=== PATIENT | male | born 1970 | race African-American/Black ===

== ENCOUNTER 2018-04-20 01:57 | Emergency (ER) | payer MEDICARE, OTHER ==
[~2018-04-20] VITALS: Ht 182.9 cm; Wt 94.4 kg
[~2018-04-20 01:57] MED LIST: ALBU8.5H8 IH; AMLO10TA2 PO; METO-239 PO
--- NOTE | 2018-04-20 02:06 | ED.ADGEN ---
Past History Past Medical History: Asthma, Hypertension, Other Past Surgical History: Appendectomy, Other Smoking: Non-smoker Alcohol Use: None Drug Use: None Adult General Chief Complaint Chief Complaint ".. I ve been having irregular heart beats the last 5 days.. I thought.. I should get it checked out.. I could not get to sleep thinking about...it..." HPI HPI Patient is a 47 year old male who presents with above hx and complaints of dysrhythmia and irregular heart rates.. Patient has extensive medical history with renal failure due to polycystic kidney disease. Patient has been on dialysis since April of this past year. Patient gets dialysis on Wednesdays and Fridays. Patient normally takes off approximately 2 L at time of dialysis. Has not been in fluid overload since he started receiving dialysis on a regular basis. Denies excessive caffeine use. Patient denies any illicit drugs. Patient has had recent change in blood pressure medications. No recent travel. No history of trauma. No specific history of ill contacts. Patient normally follows with Dr. Hutton. Patient does not recall his dialysis doctor at this time. Patient has had increased snoring at night.and insomnia. Prior sleep study 10 yrs ago. Review of Systems Review of Systems Constitutional: Denies fever or chills [] Eyes: Denies change in visual acuity, redness, or eye pain [] HENT: Denies nasal congestion or sore throat [] Respiratory: Denies cough or shortness of breath [] Cardiovascular: No additional information not addressed in HPI [] GI: Denies abdominal pain, nausea, vomiting, bloody stools or diarrhea [] : Denies dysuria or hematuria [] Musculoskeletal: Denies back pain or joint pain [] Integument: Denies rash or skin lesions [] Neurologic: Denies headache, focal weakness or sensory changes [] Endocrine: Denies polyuria or polydipsia [] All other systems were reviewed and found to be within normal limits, except as documented in this note. Family History Family History Noncontributory Current Medications Current Medications Current Medications Medications (Trade) Dose Ordered Sig/Lisa Start Time Stop Time Status Last Admin Dose Admin Metoprolol Tartrate (Lopressor Vial) 5 mg 1X ONCE 04/20/18 05:00 04/20/18 05:16 DC 04/20/18 05:08 5 MG See nursing for home medications Allergies Allergies Allergies Coded Allergies Type Severity Reaction Last Updated Verified lisinopril Allergy Severe 06/06/15 Yes aspirin Allergy Unknown 06/06/15 No Physical Exam Physical Exam Constitutional: Mild distress, non-toxic appearance. [] HENT: Normocephalic, atraumatic, bilateral external ears normal, oropharynx moist, no oral exudates, nose normal. [] Eyes: PERRLA, EOMI, conjunctiva normal, no discharge. [] Neck: Normal range of motion, no tenderness, supple, no stridor. [] Cardiovascular: Irregular Heart rate and irregular regular rhythm, no murmur [] monitor shows occasional PVCs, PACs, and episodes of 3-2 - second degree atrial heart block Lungs & Thorax: Bilateral breath sounds equal apexes few scattered wheezes and increased crackles in bases on Auscultation [] Abdomen: Bowel sounds normal, soft, no tenderness, renal palpable, no pulsatile masses. [] Old surgery scars. Skin: Warm, dry, no erythema, no rash. [] Back: No tenderness, no CVA tenderness. [] Extremities: No tenderness, no cyanosis, no clubbing, ROM intact, no edema. [] Good thrill at A/V site on left arm Neurologic: Alert and oriented X 3, normal motor function, normal sensory function, no focal deficits noted. [] Psychologic: Affect anxious, judgement normal, mood normal. [] Current Patient Data Vital Signs Vital Signs Date Time Temp Pulse Resp B/P (MAP) Pulse Ox O2 Delivery O2 Flow Rate FiO2 04/20/18 06:04 98.1 89 154/99 (117) 97 Room Air 04/20/18 05:20 20 Lab Results Laboratory Tests Test 04/20/18 03:20 04/20/18 05:27 White Blood Count 6.1 x10^3/uL (4.0-11.0) Red Blood Count 3.77 x10^6/uL (4.30-5.70) L Hemoglobin 10.4 g/dL (13.0-17.5) L Hematocrit 31.8 % (39.0-53.0) L Mean Corpuscular Volume 84 fL (79-100) Mean Corpuscular Hemoglobin 28 pg (25-35) Mean Corpuscular Hemoglobin Concent 33 g/dL (31-37) Red Cell Distribution Width 15.5 % (11.5-14.5) H Platelet Count 212 x10^3/uL (140-400) Neutrophils (%) (Auto) 55 % (31-73) Lymphocytes (%) (Auto) 21 % (24-48) L Monocytes (%) (Auto) 13 % (0-9) H Eosinophils (%) (Auto) 9 % (0-3) H Basophils (%) (Auto) 2 % (0-3) Neutrophils # (Auto) 3.4 x10^3uL (1.8-7.7) Lymphocytes # (Auto) 1.3 x10^3/uL (1.0-4.8) Monocytes # (Auto) 0.8 x10^3/uL (0.0-1.1) Eosinophils # (Auto) 0.6 x10^3/uL (0.0-0.7) Basophils # (Auto) 0.1 x10^3/uL (0.0-0.2) Prothrombin Time 10.6 SEC (9.4-11.4) Prothrombin Time INR 1.0 (0.9-1.1) PTT 25 SEC (23-33) D-Dimer (Katelynn) 0.82 mg/L (0.00-0.50) H Sodium Level 141 mmol/L (136-145) Potassium Level 3.5 mmol/L (3.5-5.1) Chloride Level 103 mmol/L (98-107) Carbon Dioxide Level 34 mmol/L (21-32) H Anion Gap 4 (6-14) L Blood Urea Nitrogen 26 mg/dL (8-26) Creatinine 8.0 mg/dL (0.7-1.3) H Estimated GFR (Cockcroft-Gault) 8.9 Glucose Level 94 mg/dL (70-99) Calcium Level 9.3 mg/dL (8.5-10.1) Magnesium Level 2.0 mg/dL (1.8-2.4) Total Bilirubin 0.5 mg/dL (0.2-1.0) Direct Bilirubin 0.1 mg/dL (0.0-0.2) Aspartate Amino Transferase (AST) 19 U/L (15-37) Alanine Aminotransferase (ALT) 34 U/L (16-63) Alkaline Phosphatase 71 U/L (46-116) Creatine Kinase 161 U/L (39-308) Creatine Kinase MB (Mass) 0.6 ng/mL (0.0-3.6) Creatine Kinase MB Relative Index 0.4 % (0-4) Troponin I Quantitative < 0.017 ng/mL (0-0.055) SX-Rix-Q-Type Natriuretic Peptide 93454 pg/mL (0-124) H Total Protein 7.0 g/dL (6.4-8.2) Albumin 3.1 g/dL (3.4-5.0) L Lipase 139 U/L (73-393) Urine Collection Type Unknown Urine Color Straw Urine Clarity Clear Urine pH 8.5 Urine Specific [place] 1.015 Urine Protein >100 mg/dl (NEG-TRACE) Urine Glucose (UA) 100 mg/dL (NEG) Urine Ketones (Stick) Neg mg/dL (NEG) Urine Blood Mod (NEG) Urine Nitrite Neg (NEG) Urine Bilirubin Neg (NEG) Urine Urobilinogen Dipstick 0.2 mg/dL (0.2 mg/dL) Urine Leukocyte Esterase Neg (NEG) Urine RBC >40 /HPF (0-2) Urine WBC 1-4 /HPF (0-4) Urine Squamous Epithelial Cells Occ /LPF Urine Bacteria Few /HPF (0-FEW) Urine Opiates Screen Neg (NEG) Urine Methadone Screen Neg (NEG) Urine Barbiturates Neg (NEG) Urine Phencyclidine Screen Neg (NEG) Urine Amphetamine/Methamphetamine Neg (NEG) Urine Benzodiazepines Screen Neg (NEG) Urine Cocaine Screen Neg (NEG) Urine Cannabinoids Screen Neg (NEG) Urine Ethyl Alcohol Neg (NEG) EKG EKG My interpretation EKG shows sinus rhythm at 90 bpm. He has a leftward axis. Nonspecific T changes anterior lateral leads. He has prolonged QT interval at 491 ms[] Radiology/Procedures Radiology/Procedures My interpretation of chest x-ray shows some cephalization. Increased cardiac silhouette.[] Comparison to 02/27/15- marked changes Course & Med Decision Making Course & Med Decision Making Pertinent Labs and Imaging studies reviewed. (See chart for details). Discussed options with Pt. He elects to have additional HD today at [facility]. Pt. declines transfer to [facility] or admission. Pt. exhibits [facility] capacity. Seems aware of risks. Pt. insistent on not being transfer. Pt. encouraged to have a repeat sleep study evaluation, because of increase snoring and insomnia complaints. Patient keep follow-up primary care. [] Final Impression Final Impression 1. Dysrhythmia[] 2. Hypertension- 3. End-stage renal disease with hemodialysis on Wednesdays and Fridays 4. Polycystic kidney disease 5. Pulmonary edema 6. Elevated BNP- 56,746 7. Anemia 8. Insomnia 9. Sleep Apnea- Hx Dragon Disclaimer Dragon Disclaimer This electronic medical record was generated, in whole or in part, using a voice recognition dictation system. JOSH FALK MD Apr 20, 2018 02:06
[2018-04-20 03:41] LABS: BASO # 0.1 x10^3/uL (0.0-0.2); BASO % 2 % (0-3); EOS # 0.6 x10^3/uL (0.0-0.7); EOS % 9 % (0-3); HEMATOCRIT 31.8 % (39.0-53.0); HEMOGLOBIN 10.4 g/dL (13.0-17.5); LYMPH # 1.3 x10^3/uL (1.0-4.8); LYMPH % 21 % (24-48); MEAN CORPUSCULAR HEMOGLOBIN 28 pg (25-35); MEAN CORPUSCULAR HGB CONC 33 g/dL (31-37); MEAN CORPUSCULAR VOLUME 84 fL (79-100); MONO # 0.8 x10^3/uL (0.0-1.1); MONO % 13 % (0-9); NEUT # 3.4 x10^3uL (1.8-7.7); NEUT % 55 % (31-73); PLATELET COUNT 212 x10^3/uL (140-400); RED BLOOD COUNT 3.77 x10^6/uL (4.30-5.70); RED CELL DISTRIBUTION WIDTH 15.5 % (11.5-14.5); WHITE BLOOD COUNT 6.1 x10^3/uL (4.0-11.0)
--- NOTE | 2018-04-20 03:51 | RAD ---
PA and lateral chest. HISTORY: Chest pain PA and lateral views were taken of the chest. Lungs are clear. Heart is normal in size without heart failure. There is no effusion. IMPRESSION: 1. No acute chest disease. Electronically signed by: Martin Greene MD (04/20/2018 3:48 AM) [id number]
[2018-04-20 04:05] LABS: ALBUMIN 3.1 g/dL (3.4-5.0); CALCIUM 9.3 mg/dL (8.5-10.1); DIRECT BILIRUBIN 0.1 mg/dL (0.0-0.2); GFR 8.9; POTASSIUM 3.5 mmol/L (3.5-5.1); TOTAL BILIRUBIN 0.5 mg/dL (0.2-1.0)
[2018-04-20] MEDS ORDERED: METOPROLOL TARTRATE 5 MG/5 ML VIAL. IV ONE (05:00)
[2018-04-20 05:52] LABS: BARBITURATES NEG (NEG); BENZODIAZEPINES NEG (NEG); CANNABINOIDS NEG (NEG); COCAINE NEG (NEG); METHADONE NEG (NEG); OPIATES NEG (NEG); PHENCYCLIDINE NEG (NEG)
[2018-04-20 05:53] LABS: BILIRUBIN,URINE NEG (NEG); CLARITY,URINE CLEAR; COLOR,URINE STRAW; GLUCOSE,URINE 100 mg/dL (NEG); NITRITE,URINE NEG (NEG); UROBILINOGEN,URINE 0.2 mg/dL (0.2 mg/dL)
[2018-04-20 05:54] LABS: BACTERIA,URINE FEW /HPF (0-FEW); RBC,URINE >40 /HPF (0-2); SQUAMOUS EPITHELIAL CELL,UR OCC /LPF
[2018-04-20 05:55] LABS: AMPHETAMINE/METHAMPHETAMINE NEG (NEG)
[2018-04-20 06:04] VITALS: BP 154/99
--- NOTE | 2018-04-20 06:36 | EKG ---
[address] [address] Test Date: 2018-04-20 Test Time: 02:40:37 Pat Name: OLIVIA DAVIS Department: Room: Gender: M [employer]: MADDIE : 1970 Requested By: JOSH FALK Order Number: [id number] Reading MD: Measurements Intervals [place] Rate: 90 P: 180 NH: 138 QRS: -44 QRSD: 88 T: 156 QT: 382 QTc: 472 Interpretive Statements SINUS RHYTHM LEFT ATRIAL ABNORMALITY LOW LIMB LEAD VOLTAGE CONSIDER LEFT VENTRICULAR HYPERTROPHY QRS(T) CONTOUR ABNORMALITY CONSIDER ANTEROSEPTAL MYOCARDIAL DAMAGE T ABNORMALITY IN ANTEROLATERAL LEADS ABNORMAL ECG RI6.01 No previous ECG available for comparison
== END 2018-04-20 06:06 | disposition home or self-care (01) ==
LOC: ER 01:57
DX: I49.9 Cardiac arrhythmia, unspecified (principal); I12.0 Hypertensive chronic kidney disease with stage 5 chronic kidney disease or end stage renal disease; N18.6 End stage renal disease; Q61.3 Polycystic kidney, unspecified; J81.1 Chronic pulmonary edema; D64.9 Anemia, unspecified; G47.00 Insomnia, unspecified; G47.30 Sleep apnea, unspecified; R79.89 Other specified abnormal findings of blood chemistry; J45.909 Unspecified asthma, uncomplicated; Z99.2 Dependence on renal dialysis; Z88.8 Allergy status to other drugs, medicaments and biological substances; Z88.6 Allergy status to analgesic agent
CPT/HCPCS: 36415; 71046; 80048; 80076; 80307; 81001; 82553; 83690; 83735; 83880; 84443; 84484; 85025; 85379; 85610; 85730; 93005; 96374; 99285; J3490; G0479

== ENCOUNTER → 2018-04-30 | Outpatient (CLI) | payer MEDICARE, OTHER ==
[2018-04-20 06:04] VITALS: BP 154/99
--- NOTE | 2018-04-30 15:24 | RAD ---
Examination: Ultrasound thyroid HISTORY: History of low TSH COMPARISON: None available FINDINGS: The right lobe of the thyroid gland measures 5.2 x 1.2 x 1.8. The left lobe of the thyroid gland measures 3.9 x 1.6 x 1.5 cm. The isthmus measures 3.5 mm in AP dimension. Diffuse increased blood flow identified in the right and left lobes of thyroid gland. IMPRESSION: Hypervascularity identified in thyroid gland. Correlate for thyroiditis or Graves' disease. Electronically signed by: Tello Gay MD (04/30/2018 3:21 PM) [facility]
== END | disposition home or self-care (01) ==
LOC: US 13:40
PROVIDERS: ATTEND Physician Assistant
DX: R94.6 Abnormal results of thyroid function studies (principal); I12.0 Hypertensive chronic kidney disease with stage 5 chronic kidney disease or end stage renal disease; N18.5 Chronic kidney disease, stage 5; Z86.2 Personal history of diseases of the blood and blood-forming organs and certain disorders involving the immune mechanism
CPT/HCPCS: 76536

== ENCOUNTER 2018-09-18 08:50 | Emergency (ER) | payer MEDICARE, OTHER ==
[~2018-09-18] VITALS: Ht 182.9 cm; Wt 97.1 kg
[~2018-09-18 08:50] MED LIST changes: +ALBU2.5V8 IH; -ALBU8.5H8 IH; -AMLO10TA2 PO; +AMLO10TA6 PO
--- NOTE | 2018-09-18 09:20 | PHYS DOC ---
Past History Past Medical History: Asthma, Hypertension, Renal Failure, Other Past Surgical History: Other (left arm AV fistula) Smoking: Non-smoker Alcohol Use: None Drug Use: None Adult General Chief Complaint Chief Complaint: ABDOMINAL PAIN HPI HPI Patient is a 47-year-old male who presents to the emergency department for evaluation. He states that at about 3, he began experiencing some right mid abdominal pain, he has not had any nausea, vomiting, diarrhea, or constipation. He has not had any fevers or chills. The pain is described as sharp in his right mid abdomen and is nonradiating. He states he has had some gallbladder problems in the past and is supposed to have his gallbladder out in the coming months, but no firm date has been sent. However he states that the pain that he had with his gallbladder in the past was higher than his current pain. There are no alleviating or exacerbating factors to his symptoms. The patient has a history of ESRD, secondary to polycystic kidney disease, his last dialysis was Sunday, his next scheduled dialysis is today at 1:30 PM. Review of Systems Review of Systems Constitutional: Denies fever or chills [] Eyes: Denies change in visual acuity, redness, or eye pain [] HENT: Denies nasal congestion or sore throat [] Respiratory: Denies cough or shortness of breath [] Cardiovascular: The patient denies any shortness of breath, chest pain, palpitations, or orthopnea[] GI: No additional information not addressed in HPI [] : Denies dysuria or hematuria [] Musculoskeletal: Denies back pain or joint pain [] Integument: Denies rash or skin lesions [] Neurologic: Denies headache, focal weakness or sensory changes [] Endocrine: Denies polyuria or polydipsia [] All other systems were reviewed and found to be within normal limits, except as documented in this note. Current Medications Current Medications Current Medications Medications (Trade) Dose Ordered Sig/Lisa Start Time Stop Time Status Last Admin Dose Admin Morphine Sulfate (Morphine 4mg Syringe) 4 mg 1X ONCE 09/18/18 09:15 09/18/18 09:16 DC Allergies Allergies Allergies Coded Allergies Type Severity Reaction Last Updated Verified lisinopril Allergy Severe 06/06/15 Yes aspirin Allergy Unknown 06/06/15 No Physical Exam Physical Exam PHYSICAL EXAM: CONSTITUTIONAL: Well developed, well nourished HEAD: normocephalic, atraumatic EENT: PERRL, EOMI. Conjunctivae normal color, sclerae non-icteric; moist mucous membranes. NECK: Supple, non-tender; no meningismus. LUNGS: Lungs CTA, breathing even and unlabored. Normal air movement. HEART: Regular rate and rhythm, no murmur CHEST: No deformity; non-tender ABDOMEN: The abdomen is soft, there is tenderness to palpation in the right mid abdomen, without rebound or guarding. The right lower quadrant itself is relatively nontender, right upper quadrant is nontender, Cook sign is absent, the left abdomen is generally non-tender, no masses or bruits. Normal bowel sounds are present. EXTREM: Normal ROM; no deformity, no calf tenderness. Normal pulses palpable in all extremities. There is no pedal edema. There is an AV fistula in the left upper arm. SKIN: No rash; no diaphoresis NEURO: Alert; normal speech and cognition; CN's grossly intact; strength grossly intact without focal deficit. BACK: No CVA TTP. Current Patient Data Lab Results Laboratory Tests Test 09/18/18 09:07 09/18/18 12:00 White Blood Count 6.7 x10^3/uL Red Blood Count 4.25 x10^6/uL Hemoglobin 11.1 g/dL Hematocrit 34.2 % Mean Corpuscular Volume 80 fL Mean Corpuscular Hemoglobin 26 pg Mean Corpuscular Hemoglobin Concent 33 g/dL Red Cell Distribution Width 18.0 % Platelet Count 176 x10^3/uL Neutrophils (%) (Auto) 72 % Lymphocytes (%) (Auto) 11 % Monocytes (%) (Auto) 10 % Eosinophils (%) (Auto) 6 % Basophils (%) (Auto) 1 % Neutrophils # (Auto) 4.8 x10^3uL Lymphocytes # (Auto) 0.8 x10^3/uL Monocytes # (Auto) 0.6 x10^3/uL Eosinophils # (Auto) 0.4 x10^3/uL Basophils # (Auto) 0.1 x10^3/uL Sodium Level 141 mmol/L Potassium Level 5.6 mmol/L Chloride Level 105 mmol/L Carbon Dioxide Level 22 mmol/L Anion Gap 14 Blood Urea Nitrogen 91 mg/dL Creatinine 12.7 mg/dL Estimated GFR (Cockcroft-Gault) 5.2 BUN/Creatinine Ratio 7 Glucose Level 145 mg/dL Lactic Acid Level 1.0 mmol/L Calcium Level 9.5 mg/dL Total Bilirubin 0.7 mg/dL Aspartate Amino Transf (AST/SGOT) 19 U/L Alanine Aminotransferase (ALT/SGPT) 36 U/L Alkaline Phosphatase 85 U/L Total Protein 5.6 g/dL Albumin 2.7 g/dL Albumin/Globulin Ratio 0.9 Lipase 134 U/L Urine Collection Type Unknown Urine Color Yellow Urine Clarity Clear Urine pH 8.0 Urine Specific Falk[place] 1.015 Urine Protein 100 mg/dl Urine Glucose (UA) 100 mg/dL Urine Ketones (Stick) Neg mg/dL Urine Blood Trace Urine Nitrite Neg Urine Bilirubin Neg Urine Urobilinogen Dipstick 0.2 mg/dL Urine Leukocyte Esterase Neg Urine RBC Occ /HPF Urine WBC Occ /HPF Urine Squamous Epithelial Cells Few /LPF Urine Bacteria 0 /HPF Current Medications Medications (Trade) Dose Ordered Sig/Lisa Route PRN Reason Start Time Stop Time Status Last Admin Dose Admin Morphine Sulfate (Morphine 4mg Syringe) 4 mg 1X ONCE IV 09/18/18 09:15 09/18/18 09:16 DC 09/18/18 09:21 Sodium Chloride 500 ml @ 0 mls/hr 1X ONCE IV 09/18/18 10:30 09/18/18 10:31 DC 09/18/18 10:54 Ondansetron HCl (Zofran) 4 mg 1X ONCE IV 09/18/18 10:30 09/18/18 10:31 DC 09/18/18 10:53 Iohexol (Omnipaque 240 Mg/ml) 50 ml STK-MED ONCE .ROUTE 09/18/18 10:30 09/18/18 10:32 DC Iohexol (Omnipaque 300 Mg/ml) 75 ml 1X ONCE IV 09/18/18 11:00 09/18/18 11:15 DC 09/18/18 12:00 EKG EKG [Normal sinus rhythm at a rate of 103 beats for minute, normal axis, normal intervals, left ventricular hypertrophy is present. There are no acute ischemic ST/T changes present. Nonspecific changes are present.] Radiology/Procedures Radiology/Procedures PROCEDURE: CT ABDOMEN PELVIS WO CONTRAST Examination: CT of the abdomen pelvis without contrast HISTORY: History of right lower quadrant abdominal pain COMPARISON: None available TECHNIQUE: Axial CT images of the abdomen pelvis were performed without contrast. Coronal and sagittal reformats are performed Exposure: One or more of the following individualized dose reduction techniques were utilized for this examination: 1. Automated exposure control 2. Adjustment of the mA and/or kV according to patient size 3. Use of iterative reconstruction technique FINDINGS: Few prominent densities identified in the bibasilar lungs with the largest measuring 1.3 cm in the right lower lobe of the lung could be pulmonary nodules or metastasis. No evidence of free air identified in the abdomen. The evaluation of the solid organs is limited lack of IV contrast. The evaluation of bowel is limited lack of oral contrast. The visualized noncontrasted liver, demonstrates multiple cystic structures within the largest measuring 1.4 cm probably cyst. Evaluation limited without IV contrast. The visualized spleen, adrenals grossly appears unremarkable. The visualized pancreas grossly appears unremarkable. The stomach is mildly distended. The small bowel is nondilated. The evaluation the appendix is limited on this examination without IV and oral contrast however no significant obvious inflammatory fat stranding identified in the right lower quadrant of the abdomen. Feces and gas noted in the colon. Urinary bladder is mildly distended. Mild thickened appearance of the urinary bladder wall with minimal surrounding fat stranding. Numerous hypodense and hyperdense cystic structures identified in the bilateral kidneys with enlarged appearing kidneys likely polycystic kidney disease. The largest hyperdense cystic structure measuring 2.9 cm identified in the left kidney. The caliber of the aorta grossly appears unremarkable. No evidence of lytic bony destructive lesion. IMPRESSION: 1. No evidence of obvious inflammatory fat stranding identified in the right lower quadrant to suggest appendicitis. 2. Polycystic kidney disease with innumerable hypodense and hyperdense cysts. The largest hyperdense cyst measures 2.9 cm in the left kidney. 3. Small nodules identified in the bibasilar lungs the largest measuring 1.3 cm in the right lower lobe of the lung could be pulmonary nodules or metastasis. 4. Mild thickened appearance of the wall of the urinary bladder with minimal surrounding fat stranding. Correlate for cystitis. [PROCEDURE: CT ABD PELV W/ORAL&IV CONTRAST Examination: CT ABD PELV W/ORAL IV CONTRAST History: RLQ sided abd pain, HX of polycystic kidney desease Comparison/Correlation: None Findings: Axial images of the abdomen and pelvis were obtained following intravenous and oral contrast administration. Minimal right basilar bullous involvement noted. Cardiomegaly is present. Small foci of atelectasis or possibly infiltrate are noted involving the costophrenic angle regions. Numerous hepatic cysts are present and small in size. Largest of hepatic cysts are present. Right hepatic lobe posterior segment cyst measuring up to 1.9 cm diameter is present. Caudate lobe cyst measuring 2.8 cm diameter is present. Subtle, minimal periportal edema is present. Severe bilateral polycystic involvement of the kidneys is noted. Kidneys are enlarged measuring up to 22.5 cm longitudinal on the right and 24.7 cm longitudinal on the left. High density foci bilaterally involving the kidneys probably represent hemorrhagic cysts are noted. No hydronephrosis. No nephrolithiasis. Minimal right infrahepatic ascites is present. No bowel obstruction. No inflammatory change about the cecum. Urinary bladder is mostly decompressed. No enlarged abdominal or pelvic lymph nodes. Mild L5-S1 disc space narrowing is present with vacuum phenomenon. This bulge is noted. Impression: Minimal periportal edema. Minimal ascites. This is of indeterminate significance. Marked polycystic kidney disease. Small foci of posterior basilar atelectasis or possibly infiltrate. Cardiomegaly.] Course & Med Decision Making Course & Med Decision Making Pertinent Labs and Imaging studies reviewed. (See chart for details) [1:05 PM: The patient's condition remained stable. He is feeling significantly better. He still having some right mid and lower abdominal tenderness to palpation. I'm uncertain of the etiology of his symptoms. I'm not highly suspicious that he has appendicitis, given the lack of leukocytosis and a normal CT. I did discuss importance of close follow-up and repeat evaluation in 24 hours if the pain persists. The patient's pain is somewhat superior to the right lower quadrant itself, make me question whether the pain might be related to his massively enlarged kidneys due to polycystic ovary disease. He is to have dialysis this afternoon I encouraged him to attend his dialysis session.] Dragon Disclaimer Dragon Disclaimer This electronic medical record was generated, in whole or in part, using a voice recognition dictation system. Departure Departure: Impression: Primary Impression: Abdominal pain Additional Impressions: Polycystic kidney disease ESRD (end stage renal disease) Disposition: 01 HOME, SELF-CARE Condition: STABLE Referrals: RAGHAVENDRA BARBOZA (PCP) Patient Instructions: Abdominal Pain Scripts Acetaminophen With Codeine (TYLENOL WITH CODEINE #3 TABLET) 1 Each Tablet 1 TAB PO Q6HRS for pain, #10 TAB Prov: KELLIE RIOS MD 09/18/18 Problem Qualifiers KELLIE RIOS MD Sep 18, 2018 09:20
[2018-09-18] MEDS: MORPHINE SULFATE 4 MG/ML DISP.SYRIN. IV ONE (09:21)
[2018-09-18 09:23] LABS: BASO # 0.1 x10^3/uL (0.0-0.2); BASO % 1 % (0-3); EOS # 0.4 x10^3/uL (0.0-0.7); EOS % 6 % (0-3); HEMATOCRIT 34.2 % (39.0-53.0); HEMOGLOBIN 11.1 g/dL (13.0-17.5); LYMPH # 0.8 x10^3/uL (1.0-4.8); LYMPH % 11 % (24-48); MEAN CORPUSCULAR HEMOGLOBIN 26 pg (25-35); MEAN CORPUSCULAR HGB CONC 33 g/dL (31-37); MEAN CORPUSCULAR VOLUME 80 fL (79-100); MONO # 0.6 x10^3/uL (0.0-1.1); MONO % 10 % (0-9); NEUT # 4.8 x10^3uL (1.8-7.7); NEUT % 72 % (31-73); PLATELET COUNT 176 x10^3/uL (140-400); RED BLOOD COUNT 4.25 x10^6/uL (4.30-5.70); WHITE BLOOD COUNT 6.7 x10^3/uL (4.0-11.0)
[2018-09-18 09:37] LABS: ALBUMIN 2.7 g/dL (3.4-5.0); ALBUMIN/GLOBULIN RATIO 0.9 (1.0-1.7); CALCIUM 9.5 mg/dL (8.5-10.1); CREATININE 12.7 mg/dL (0.7-1.3); GFR 5.2; POTASSIUM 5.6 mmol/L (3.5-5.1); TOTAL BILIRUBIN 0.7 mg/dL (0.2-1.0); TOTAL PROTEIN 5.6 g/dL (6.4-8.2)
--- NOTE | 2018-09-18 10:03 | RAD ---
Examination: CT of the abdomen pelvis without contrast HISTORY: History of right lower quadrant abdominal pain COMPARISON: None available TECHNIQUE: Axial CT images of the abdomen pelvis were performed without contrast. Coronal and sagittal reformats are performed Exposure: One or more of the following individualized dose reduction techniques were utilized for this examination: 1. Automated exposure control 2. Adjustment of the mA and/or kV according to patient size 3. Use of iterative reconstruction technique FINDINGS: Few prominent densities identified in the bibasilar lungs with the largest measuring 1.3 cm in the right lower lobe of the lung could be pulmonary nodules or metastasis. No evidence of free air identified in the abdomen. The evaluation of the solid organs is limited lack of IV contrast. The evaluation of bowel is limited lack of oral contrast. The visualized noncontrasted liver, demonstrates multiple cystic structures within the largest measuring 1.4 cm probably cyst. Evaluation limited without IV contrast. The visualized spleen, adrenals grossly appears unremarkable. The visualized pancreas grossly appears unremarkable. The stomach is mildly distended. The small bowel is nondilated. The evaluation the appendix is limited on this examination without IV and oral contrast however no significant obvious inflammatory fat stranding identified in the right lower quadrant of the abdomen. Feces and gas noted in the colon. Urinary bladder is mildly distended. Mild thickened appearance of the urinary bladder wall with minimal surrounding fat stranding. Numerous hypodense and hyperdense cystic structures identified in the bilateral kidneys with enlarged appearing kidneys likely polycystic kidney disease. The largest hyperdense cystic structure measuring 2.9 cm identified in the left kidney. The caliber of the aorta grossly appears unremarkable. No evidence of lytic bony destructive lesion. IMPRESSION: 1. No evidence of obvious inflammatory fat stranding identified in the right lower quadrant to suggest appendicitis. 2. Polycystic kidney disease with innumerable hypodense and hyperdense cysts. The largest hyperdense cyst measures 2.9 cm in the left kidney. 3. Small nodules identified in the bibasilar lungs the largest measuring 1.3 cm in the right lower lobe of the lung could be pulmonary nodules or metastasis. 4. Mild thickened appearance of the wall of the urinary bladder with minimal surrounding fat stranding. Correlate for cystitis. Electronically signed by: Tello Gay MD (09/18/2018 9:59 AM) [place] [id number]
[2018-09-18] MEDS ORDERED: IOHEXOL 240 MG/ML 50ML VIAL. ONE (10:30)
[2018-09-18] MEDS: ONDANSETRON PF 4 MG/2 ML VIAL. IV ONE (10:53)
[2018-09-18] MEDS: IV NORMAL SALINE 500ML 500 ML IV ONE (10:54)
[2018-09-18] MEDS: IOHEXOL 300 MG/ML 75 ML VIAL. IV ONE (12:00)
[2018-09-18 12:24] LABS: BILIRUBIN,URINE NEG (NEG); CLARITY,URINE CLEAR; COLOR,URINE YELLOW; GLUCOSE,URINE 100 mg/dL (NEG); UROBILINOGEN,URINE 0.2 mg/dL (0.2 mg/dL)
[2018-09-18 12:25] LABS: BACTERIA,URINE 0 /HPF (0-FEW); NITRITE,URINE NEG (NEG); RBC,URINE OCC /HPF (0-2); SQUAMOUS EPITHELIAL CELL,UR FEW /LPF; WBC,URINE OCC /HPF (0-4)
--- NOTE | 2018-09-18 12:55 | RAD ---
Examination: CT ABD PELV W/ORAL IV CONTRAST History: RLQ sided abd pain, HX of polycystic kidney desease Comparison/Correlation: None Findings: Axial images of the abdomen and pelvis were obtained following intravenous and oral contrast administration. Minimal right basilar bullous involvement noted. Cardiomegaly is present. Small foci of atelectasis or possibly infiltrate are noted involving the costophrenic angle regions. Numerous hepatic cysts are present and small in size. Largest of hepatic cysts are present. Right hepatic lobe posterior segment cyst measuring up to 1.9 cm diameter is present. Caudate lobe cyst measuring 2.8 cm diameter is present. Subtle, minimal periportal edema is present. Severe bilateral polycystic involvement of the kidneys is noted. Kidneys are enlarged measuring up to 22.5 cm longitudinal on the right and 24.7 cm longitudinal on the left. High density foci bilaterally involving the kidneys probably represent hemorrhagic cysts are noted. No hydronephrosis. No nephrolithiasis. Minimal right infrahepatic ascites is present. No bowel obstruction. No inflammatory change about the cecum. Urinary bladder is mostly decompressed. No enlarged abdominal or pelvic lymph nodes. Mild L5-S1 disc space narrowing is present with vacuum phenomenon. This bulge is noted. Impression: Minimal periportal edema. Minimal ascites. This is of indeterminate significance. Marked polycystic kidney disease. Small foci of posterior basilar atelectasis or possibly infiltrate. Cardiomegaly. Electronically signed by: Mason Penaloza MD (09/18/2018 12:51 PM) [id number]
[2018-09-18 13:00] VITALS: BP 154/100
[2018-09-18] MEDS ORDERED: ACET-704 PO (13:09)
--- NOTE | 2018-09-18 17:40 | EKG ---
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
== END 2018-09-18 13:10 | disposition home or self-care (01) ==
LOC: ER 08:50
DX: Q61.3 Polycystic kidney, unspecified (principal); I12.0 Hypertensive chronic kidney disease with stage 5 chronic kidney disease or end stage renal disease; N18.6 End stage renal disease; J45.909 Unspecified asthma, uncomplicated; R18.8 Other ascites; J98.11 Atelectasis; I51.7 Cardiomegaly; Z88.6 Allergy status to analgesic agent; Z99.2 Dependence on renal dialysis; Z88.8 Allergy status to other drugs, medicaments and biological substances
CPT/HCPCS: 36415; 74176; 74177; 80053; 81001; 83605; 83690; 85025; 93005; 96374; 96375; 99284; J2270; J2405; J7040; Q9967

== ENCOUNTER → 2019-01-22 | Outpatient (CLI) | payer MEDICARE, OTHER ==
[~2019-01-22] MED LIST changes: +ACET-704 PO; -AMLO10TA6 PO; +AMLO10TA8 PO
--- NOTE | 2019-01-22 14:42 | RAD ---
AP view of the abdomen Clinical indications: Evaluation of peritoneal dialysis catheter placement. FINDINGS: Peritoneal dialysis catheter is in place and is seen extending from the right mid abdomen toward the midline extending inferiorly into the midline of the midpelvis. No obstructive bowel pattern is evident. There is moderate fecal retention throughout the colon and rectosigmoid region. The osseous structures are intact. IMPRESSION: Peritoneal dialysis catheter in place. Moderate fecal retention. Electronically signed by: Enrico Boo MD (01/22/2019 2:39 PM) [id number]
== END | disposition home or self-care (01) ==
LOC: RAD 14:15
PROVIDERS: ATTEND Internal Medicine Nephrology
DX: Z49.02 Encounter for fitting and adjustment of peritoneal dialysis catheter (principal); K59.00 Constipation, unspecified
CPT/HCPCS: 74018

== ENCOUNTER 2019-07-26 00:34 | Emergency (ER) | payer OTHER, MEDICAID ==
[~2019-07-26] VITALS: Ht 182.9 cm; Wt 94.6 kg
--- NOTE | 2019-07-26 00:37 | ED.ADGEN ---
Past History Past Medical History: Asthma, Hypertension, Renal Failure, Other Past Surgical History: Other Smoking: Non-smoker Alcohol Use: None Drug Use: None Adult General Chief Complaint Chief Complaint ".. I am .. having... bad.... asthma... I am... too short... of ... breath....." HPI HPI Patient is a 48 year old male who presents with above hx and complaints of severe asthma exacerbation. Pt. reports he has severe exacerbation a pproximately once per year. - Pt. reports he did use his inhaler at home but it did not seem to be working. Patient did go to dialysis today and he took off 2 kg of fluid this is more than his average 1.5 kg. Patient has chronic renal disease and has had episodes of pulmonary edema. Patient gets dialysis on Wednesdays and Fridays. Patient does not know his baseline peak flow. No history of intubations for asthma exacerbations. Patient has had almost yearly asthma exacerbation since age 23. Patient denies any specific ill contacts or recent travel. With Dr. Steen for his renal failure. Follows with [facility] for primary care. Review of Systems Review of Systems Constitutional: Denies fever or chills [] Eyes: Denies change in visual acuity, redness, or eye pain [] HENT: Denies nasal congestion or sore throat [] Respiratory: History of a nonproductive cough and marked wheezing Cardiovascular: No additional information not addressed in HPI [] GI: Denies abdominal pain, nausea, vomiting, bloody stools or diarrhea [] : Denies dysuria or hematuria [] Musculoskeletal: Denies back pain or joint pain [] Integument: Denies rash or skin lesions [] Neurologic: Denies headache, focal weakness or sensory changes [] Endocrine: Denies polyuria or polydipsia [] All other systems were reviewed and found to be within normal limits, except as documented in this note. Family History Family History Noncontributory Current Medications Current Medications Current Medications Medications (Trade) Dose Ordered Sig/Lisa Start Time Stop Time Status Last Admin Dose Admin Albuterol Sulfate (Ventolin Hfa Inhaler) 2 puff 1X ONCE 07/26/19 03:15 07/26/19 04:13 DC 07/26/19 03:51 2 PUFF Albuterol/ Ipratropium (Duoneb) 3 ml 1X ONCE 07/26/19 04:00 07/26/19 04:13 DC 07/26/19 00:50 3 ML Methylprednisolone Sodium Succinate (SOLU-Medrol 125MG VIAL) 125 mg 1X ONCE 07/26/19 01:15 07/26/19 01:16 DC 07/26/19 01:47 125 MG See nursing for home meds Allergies Allergies Allergies Coded Allergies Type Severity Reaction Last Updated Verified lisinopril Allergy Severe 06/06/15 Yes aspirin Allergy Unknown 06/06/15 No Physical Exam Physical Exam Constitutional: Moderately acute distress, non-toxic appearance. [] HENT: Normocephalic, atraumatic, bilateral external ears normal, oropharynx moist, no oral exudates, nose swollen turbinates and clear rhinorrhea. Eyes: PERRLA, EOMI, conjunctiva normal, no discharge. [] Neck: Normal range of motion, no tenderness, supple, no stridor. [] Cardiovascular: Tachycardia Heart rate regular rhythm, no murmur []PMI to the left Lungs & Thorax: Bilateral breath sounds equal apex with wheezing throughout on auscultation [] Abdomen: Bowel sounds normal, soft, no tenderness, no masses, no pulsatile masses. [] Skin: Warm, dry, no erythema, no rash. [] Back: No tenderness, no CVA tenderness. [] Extremities: No tenderness, no cyanosis, no clubbing, ROM intact, no edema. [] Left AV graft has good thrill. No cording in legs. Neurologic: Alert and oriented X 3, normal motor function, normal sensory function, no focal deficits noted. [] Psychologic: Affect anxious,, judgement normal, mood normal. [] Current Patient Data Vital Signs Vital Signs Date Time Temp Pulse Resp B/P (MAP) Pulse Ox O2 Delivery O2 Flow Rate FiO2 07/26/19 04:00 98.3 86 20 127/78 (94) 96 Room Air Lab Results Laboratory Tests Test 07/26/19 01:45 White Blood Count 7.5 x10^3/uL (4.0-11.0) Red Blood Count 4.74 x10^6/uL (4.30-5.70) Hemoglobin 13.9 g/dL (13.0-17.5) Hematocrit 42.0 % (39.0-53.0) Mean Corpuscular Volume 89 fL (79-100) Mean Corpuscular Hemoglobin 29 pg (25-35) Mean Corpuscular Hemoglobin Concent 33 g/dL (31-37) Red Cell Distribution Width 14.7 % (11.5-14.5) H Platelet Count 220 x10^3/uL (140-400) Neutrophils (%) (Auto) 62 % (31-73) Lymphocytes (%) (Auto) 19 % (24-48) L Monocytes (%) (Auto) 12 % (0-9) H Eosinophils (%) (Auto) 6 % (0-3) H Basophils (%) (Auto) 1 % (0-3) Neutrophils # (Auto) 4.7 x10^3uL (1.8-7.7) Lymphocytes # (Auto) 1.5 x10^3/uL (1.0-4.8) Monocytes # (Auto) 0.9 x10^3/uL (0.0-1.1) Eosinophils # (Auto) 0.5 x10^3/uL (0.0-0.7) Basophils # (Auto) 0.1 x10^3/uL (0.0-0.2) Prothrombin Time 10.3 SEC (9.4-11.4) Prothrombin Time INR 1.0 (0.9-1.1) Activated Partial Thromboplast Time 26 SEC (23-33) D-Dimer (Katelynn) 1.12 mg/L (0.00-0.50) H Sodium Level 146 mmol/L (136-145) H Potassium Level 4.6 mmol/L (3.5-5.1) Chloride Level 101 mmol/L (98-107) Carbon Dioxide Level 30 mmol/L (21-32) Anion Gap 15 (6-14) H Blood Urea Nitrogen 39 mg/dL (8-26) H Creatinine 11.6 mg/dL (0.7-1.3) H Estimated GFR (Cockcroft-Gault) 5.8 Glucose Level 124 mg/dL (70-99) H Calcium Level 7.5 mg/dL (8.5-10.1) L Magnesium Level 1.7 mg/dL (1.8-2.4) L Total Bilirubin 0.3 mg/dL (0.2-1.0) Direct Bilirubin 0.1 mg/dL (0.0-0.2) Aspartate Amino Transferase (AST) 6 U/L (15-37) L Alanine Aminotransferase (ALT) 19 U/L (16-63) Alkaline Phosphatase 139 U/L (46-116) H Creatine Kinase 636 U/L (39-308) H Troponin I Quantitative < 0.017 ng/mL (0-0.055) RE-Ihk-T-Type Natriuretic Peptide 1312 pg/mL (0-124) H Total Protein 8.4 g/dL (6.4-8.2) H Albumin 3.3 g/dL (3.4-5.0) L Lipase 158 U/L (73-393) EKG EKG My interpretation EKG shows sinus tachycardia 102 bpm. Does have a right axis deviation. No findings acute STEMI of contralateral changes.[] Radiology/Procedures Radiology/Procedures I interpretation of chest x-ray shows no localized infiltrate or findings of increased cephalization. As compared. 2 prior films on file[][address] [address] IMAGING REPORT Signed PATIENT: OLIVIA DAVIS V ACCOUNT: [id number] : 1970 LOCATION: ER AGE: 48 SEX: M EXAM STATUS: REG ER ORD. PHYSICIAN: JOSH FALK MD REASON: respiratory failure PROCEDURE: PORTABLE CHEST 1V PORTABLE CHEST 1V Clinical History: Respiratory failure Technique: AP view of the chest was obtained at 07/26/2019 12:54 AM. Comparison: April 20, 2018. Findings: The cardiomediastinal silhouette is normal. The pulmonary vasculature is normal. The lungs and pleural margins are clear. Impression: No evidence of an acute cardiopulmonary process. Electronically signed by: Jenelle Carnes III, MD (07/26/2019 5:47 AM) [facility] DICTATED AND SIGNED BY: JENELLE CARNES III, MD DATE: 07/26/19 0547 CC: JOSH FALK MD; RAGHAVENDRA BARBOZA ~ Course & Med Decision Making Course & Med Decision Making Pertinent Labs and Imaging studies reviewed. (See chart for details) Patient received Solu-Medrol 125. DuoNeb treatments. Marked improvement in wheezing. Patient requested discharge home. Reviewed labs x-rays and EKG findings with patient. Patient will follow-up with nephrology in his primary care. Patient may use MDI 2 puffs 4 times a day. Document peak flows. Review this with primary ca re. Patient return if any concerns. Patient will take prednisone 50 mg daily for 5 days. Patient must follow-up primary care. Patient return if elects to be admitted. Patient encouraged to return if any concerns. Patient exhibits UCAR capacity [] Final Impression Final Impression 1. Asthma exacerbation 2. Chronic renal failure and dialysis Sunday[] 3. BNP 1312 4. BUN 39/ Creat 11.6 Dragon Disclaimer Dragon Disclaimer This electronic medical record was generated, in whole or in part, using a voice recognition dictation system. Dragon Disclaimer This chart was dictated in whole or in part using Voice Recognition software in a busy, high-work load, and often noisy Emergency Department environment. It may contain unintended and wholly unrecognized errors or omissions. Dragon Disclaimer This chart was dictated in whole or in part using Voice Recognition software in a busy, high-work load, and often noisy Emergency Department environment. It may contain unintended and wholly unrecognized errors or omissions. JOSH FALK MD Jul 26, 2019 00:37
[2019-07-26] MEDS ORDERED: IPRATRPIUM/ALBUTEROL 0.5/2.5MG 3 ML NEBU. ONE (00:47)
[2019-07-26] MEDS ORDERED: ISOS30TA4 PO (00:50)
[2019-07-26] MEDS ORDERED: HYDR-2867 PO (00:50)
[2019-07-26] MEDS ORDERED: CARV12.5 PO (00:50)
[2019-07-26] MEDS ORDERED: thyroid med (00:51)
[2019-07-26] MEDS ORDERED: methylPREDNISolone SOD SUCC PF 125 MG/2 ML VIAL. IV ONE (01:15)
[2019-07-26 02:34] LABS: BASO # 0.1 x10^3/uL (0.0-0.2); BASO % 1 % (0-3); EOS # 0.5 x10^3/uL (0.0-0.7); EOS % 6 % (0-3); HEMOGLOBIN 13.9 g/dL (13.0-17.5); LYMPH # 1.5 x10^3/uL (1.0-4.8); LYMPH % 19 % (24-48); MEAN CORPUSCULAR HEMOGLOBIN 29 pg (25-35); MEAN CORPUSCULAR HGB CONC 33 g/dL (31-37); MEAN CORPUSCULAR VOLUME 89 fL (79-100); MONO # 0.9 x10^3/uL (0.0-1.1); MONO % 12 % (0-9); NEUT # 4.7 x10^3uL (1.8-7.7); NEUT % 62 % (31-73); PLATELET COUNT 220 x10^3/uL (140-400); RED BLOOD COUNT 4.74 x10^6/uL (4.30-5.70); RED CELL DISTRIBUTION WIDTH 14.7 % (11.5-14.5); WHITE BLOOD COUNT 7.5 x10^3/uL (4.0-11.0)
[2019-07-26 02:48] LABS: ALBUMIN 3.3 g/dL (3.4-5.0); CALCIUM 7.5 mg/dL (8.5-10.1); CREATININE 11.6 mg/dL (0.7-1.3); DIRECT BILIRUBIN 0.1 mg/dL (0.0-0.2); GFR 5.8; MAGNESIUM 1.7 mg/dL (1.8-2.4); POTASSIUM 4.6 mmol/L (3.5-5.1); TOTAL BILIRUBIN 0.3 mg/dL (0.2-1.0)
[2019-07-26] MEDS ORDERED: ALBUTEROL SULFATE 8GM INHALER. INH ONE (03:15)
[2019-07-26] MEDS ORDERED: PRED50TA PO (03:17)
[2019-07-26 04:00] VITALS: BP 127/78
[2019-07-26] MEDS ORDERED: IPRATRPIUM/ALBUTEROL 0.5/2.5MG 3 ML NEBU. NEB ONE (04:00)
--- NOTE | 2019-07-26 05:50 | RAD ---
PORTABLE CHEST 1V Clinical History: Respiratory failure Technique: AP view of the chest was obtained at 07/26/2019 12:54 AM. Comparison: April 20, 2018. Findings: The cardiomediastinal silhouette is normal. The pulmonary vasculature is normal. The lungs and pleural margins are clear. Impression: No evidence of an acute cardiopulmonary process. Electronically signed by: Jacob Chapman III, MD (07/26/2019 5:47 AM) [facility]
--- NOTE | 2019-07-26 17:08 | EKG ---
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
[2019-07-27 13:45] LABS: TOTAL PROTEIN 8.4 g/dL (6.4-8.2)
== END 2019-07-26 04:05 | disposition home or self-care (01) ==
LOC: ER 00:34
DX: J45.901 Unspecified asthma with (acute) exacerbation (principal); I12.9 Hypertensive chronic kidney disease with stage 1 through stage 4 chronic kidney disease, or unspecified chronic kidney disease; N18.9 Chronic kidney disease, unspecified; J45.909 Unspecified asthma, uncomplicated; I10 Essential (primary) hypertension; Z99.2 Dependence on renal dialysis; Z88.6 Allergy status to analgesic agent; Z88.8 Allergy status to other drugs, medicaments and biological substances
CPT/HCPCS: 36415; 71045; 80048; 80076; 82550; 83690; 83735; 83880; 84443; 84484; 85025; 85379; 85610; 85730; 87040; 93005; 94640; 96374; 99285; J2930; J7613; J7620

== ENCOUNTER 2019-11-11 22:06 | Emergency (ER) | payer MEDICAID, OTHER ==
[~2019-11-11 22:06] MED LIST changes: +CARV12.5 PO; +HYDR-2867 PO; +ISOS30TA4 PO; +PRED50TA PO; +thyroid med
== END 2019-11-11 22:20 | disposition home or self-care (01) ==
LOC: ER 22:06
DX: R06.02 Shortness of breath (principal); Z53.21 Procedure and treatment not carried out due to patient leaving prior to being seen by health care provider

== ENCOUNTER → 2020-12-27 | Outpatient (CLI) | payer OTHER ==
[~2020-12-27] MED LIST changes: +AMLO-187 PO; -AMLO10TA8 PO; -ISOS30TA4 PO; +ISOS30TA68 PO
--- NOTE | 2020-12-27 12:46 | RAD ---
PA and lateral chest. HISTORY: Fever, cough PA and lateral views were taken of the chest. Comparison is made with a study from July 2019. The re are mild hazy bilateral infiltrates. There is mild peribronchial thickening. Mild pneumonia or Cov id-19 pneumonia is possible. There is no effusion. Heart is normal in size. IMPRESSION: 1. Mild infiltrates. Electronically signed by: Martin Greene MD (12/27/2020 12:44 PM) [id number]
== END ==
LOC: PMG 12:17
PROVIDERS: ATTEND Nurse Practitioner Family
DX: R91.8 Other nonspecific abnormal finding of lung field (principal)
CPT/HCPCS: 71046

== ENCOUNTER → 2022-01-26 | Outpatient (CLI) | payer OTHER ==
--- NOTE | 2022-01-26 16:43 | RAD ---
EXAM: XR RIBS MIN 3 VIEWS LT W/PA CHEST 01/26/2022 3:48 PM CLINICAL INDICATION: Left rib pain for several months. COMPARISON: Chest radiograph 12/27/2020 TECHNIQUE: PA view of the chest. AP and oblique views of the left ribs. FINDINGS: No left rib fracture. The heart is normal in size. Lungs are well-expanded and clear. No p leural effusion or pneumothorax. IMPRESSION: No left rib fracture or acute cardiopulmonary abnormality. Electronically signed by: Josy Jacinto MD (01/26/2022 4:40 PM) [id number]
== END ==
LOC: RAD 15:27
PROVIDERS: ATTEND Physician Assistant
DX: R07.89 Other chest pain (principal); R07.81 Pleurodynia
CPT/HCPCS: 71101